=== PATIENT | male | born 1985 | race African-American/Black ===

== ENCOUNTER 2018-04-04 10:16 | Emergency (ER) | payer OTHER ==
[2018-04-04] MEDS ORDERED: MAGNE/ALUM HYDROXD 30 ML UCUP ONE (10:49)
[2018-04-04] MEDS ORDERED: LIDOCAINE VISCOUS 2% SOLN 15 ML UDC ONE (10:49)
[2018-04-04 11:12] LABS: Absolute Lymphocytes (CBC) 1.7 K/uL (0.7-4.9); Absolute Monocytes 0.7 K/uL (0.1-1.3); Basophils % 0.5 % (0-1.3); Eosinophils % 6.6 % (0-4.4); Hematocrit 42.9 % (39.6-49.0); Lymphocytes % 29.6 % (15.3-44.8); MCH 28.7 pg (27.0-35.0); MCV 88.9 fL (80-100); MPV 8.8 fL (7.6-11.3); RBC Red Blood Cell Count 4.83 M/uL (4.33-5.43)
[2018-04-04 11:21] LABS: Bicarbonate 29 mEq/L (21-31); Glucose Level 98 mg/dL (65-120); Lipase 21 U/L (22-51); Potassium 3.9 mEq/L (3.6-5.0); Sodium Level 138 mEq/L (135-145)
[2018-04-04 11:27] LABS: ALT/SGPT 29 IU/L (10-60); AST/SGOT 62 IU/L (10-42); Albumin 4.4 g/dL (3.2-5.5); Alkaline Phosphatase 73 IU/L (42-121); BUN Blood Urea Nitrogen 14 mg/dL (6-20); Bilirubin Direct < 0.1 mg/dL (0-0.2); Bilirubin Total 0.5 mg/dL (0.3-1.2); Protein, Total 7.6 g/dL (6.0-8.3)
--- NOTE | 2018-04-04 12:37 | RAD REPORT ---
EXAM DESCRIPTION: US - Abdomen Exam Limited - 04/04/2018 12:22 pm CLINICAL HISTORY: Abdominal pain COMPARISON: None. FINDINGS: No gallstones are identified. Minimal amount of sludge is seen. There is no wall thickenin g or pericholecystic fluid. No common duct stone or biliary tree dilatation identified. IMPRESSION: Minimal gallbladder sludge with no other gallbladder or biliary tree finding.
--- NOTE | 2018-04-04 12:43 | ER ---
Nurse's Notes [facility] Name: Mendez Lozada Age: 32 yrs Sex: Male : 1985 Arrival Date: 04/04/2018 Time: 10:19 Bed 16 Private MD: None, None Diagnosis: Gastritis, unspecified, without bleeding Presentation: 04/04 10:21 Presenting complaint: Patient states: Epigastric pain since this AM with one episode of aj diarrhea. Patient also reports bright red blood on toilet paper when wiping for 8 years, intermittently. Transition of care: patient was not received from another setting of care. Onset of symptoms was April 04, 2018. Care prior to arrival: None. 10:21 Method Of Arrival: Ambulatory aj 10:21 Acuity: LARON 3 aj 10:52 Risk Assessment: Do you want to hurt yourself or someone else? Patient reports no jl7 desire to harm self or others. Initial Sepsis Screen: Does the patient meet any 2 criteria? No. Patient's initial sepsis screen is negative. Does the patient have a suspected source of infection? No. Patient's initial sepsis screen is negative. Triage Assessment: 10:23 General: Appears in no apparent distress. comfortable, Behavior is calm, cooperative, aj appropriate for age. Pain: Complains of pain in epigastric area Pain currently is 9 out of 10 on a pain scale. Neuro: Level of Consciousness is awake, alert, obeys commands, Oriented to person, place, time, situation, Appropriate for age. Respiratory: Airway is patent Respiratory effort is even, unlabored, Respiratory pattern is regular, symmetrical. GI: Reports upper abdominal pain, diarrhea. Derm: Skin is intact, is healthy with good turgor, Skin is pink, warm \\T\\ dry. normal. Historical: - Allergies: 10:23 No Known Allergies; aj - Home Meds: 10:23 None [Active]; aj - PMHx: 10:23 None; aj - PSHx: 10:23 Arthroscopic knee; aj - Immunization history:: Adult Immunizations up to date. - Social history:: Smoking status: Patient/guardian denies using tobacco. - Ebola Screening: : No symptoms or risks identified at this time. - Family history:: not pertinent. - Hospitalizations: : No recent hospitalization is reported. Screenin:30 Abuse screen: Denies threats or abuse. Denies injuries from another. Nutritional jl7 screening: No deficits noted. Tuberculosis screening: No symptoms or risk factors identified. Fall Risk IV access (20 points). Total Davison Fall Scale indicates No Risk (0-24 pts). Assessment: 10:30 General: Appears in no apparent distress. uncomfortable, Behavior is calm, cooperative, jl7 appropriate for age. Pain: Complains of pain in epigastric area Pain does not radiate. Pain currently is 7 out of 10 on a pain scale. Quality of pain is described as aching, dull, Pain began 1 day ago. Is continuous. Neuro: Level of Consciousness is awake, alert, obeys commands, Oriented to person, place, time, situation. Cardiovascular: Patient's skin is warm and dry. Respiratory: Airway is patent Respiratory effort is even, unlabored, Respiratory pattern is regular, symmetrical. GI: Bowel sounds present X 4 quads. Abd is soft and non tender X 4 quads. Abdomen is tender to palpation in epigastric area. : No signs and/or symptoms were reported regarding the genitourinary system. EENT: No signs and/or symptoms were reported regarding the EENT system. Derm: Skin is dry, Skin is normal, Skin temperature is warm. Musculoskeletal: No signs and/or symptoms reported regarding the musculoskeletal system. 11:28 Reassessment: Patient appears in no apparent distress at this time. Patient and/or hb family updated on plan of care and expected duration. Pain level reassessed. Patient is alert, oriented x 3, equal unlabored respirations, skin warm/dry/pink. 12:01 Reassessment: Pt states "The meds helped a little but I can still feel the dull achy jl7 feeling.". Vital Signs: 10:23 BP 141 / 90; Pulse 66; Resp 18; Temp 97.5; Pulse Ox 99% on R/A; Weight 70.76 kg; Height aj 5 ft. 9 in. (175.26 cm); Pain 9/10; 11:15 BP 131 / 80; Pulse 65; Resp 15; Pulse Ox 100% on R/A; hb 11:30 Pain 7/10; jl7 12:02 BP 134 / 80; Pulse 57; Resp 16; Pulse Ox 100% ; Pain 7/10; jl7 10:23 Body Mass Index 23.04 (70.76 kg, 175.26 cm) ED Course: 10:19 Patient arrived in ED. sb2 10:19 None, None is Private Physician. sb2 10:22 Triage completed. aj 10:23 Arm band placed on left wrist. Patient placed in an exam room. aj 10:25 Enzo Fernando MD is Attending Physician. rn 10:30 Patient has correct armband on for positive identification. Placed in gown. Bed in low jl7 position. Call light in reach. Side rails up X 1. Pulse ox on. NIBP on. 10:39 Sharif Santoro, RN is Primary Nurse. jl7 10:49 Inserted saline lock: 20 gauge in right antecubital area, using aseptic technique. hb Blood collected. 12:17 Patient taken to ultrasound. via wheelchair. aa4 12:19 Abdomen Exam Limited In Process Unspecified. EDMS 12:26 Ultrasound completed. Patient tolerated well. Patient moved back from ultrasound. aa4 12:42 Jace Lynch MD is Referral Physician. rn 13:30 No provider procedures requiring assistance completed. aa5 13:30 IV discontinued, intact, bleeding controlled, No redness/swelling at site. Pressure aa5 dressing applied. Administered Medications: 10:51 Drug: GI Cocktail without - (Maalox Suspension 30 ml, Lidocaine Liquid 2 % 15 jl7 ml) Route: PO; 11:30 Follow up: Pain 7/10 Adult; Response: No adverse reaction; Pain is decreased jl7 Outcome: 12:42 Discharge ordered by MD. rn 13:30 Discharged to home ambulatory. aa5 13:30 Condition: stable 13:30 Discharge instructions given to patient, Instructed on discharge instructions, follow up and referral plans. Demonstrated understanding of instructions, follow-up care. 13:32 Patient left the ED. aa5 Signatures: Dispatcher [employer] EDMS Karie Ayers RN RN Karie Kelley aa4 Enzo Fernando MD MD rn Calderon, Audri, RN RN aa5 Morena Fiore RN RN hb Leal, Jahala, RN RN jl7 Mer Mehta sb2
--- NOTE | 2018-04-04 12:44 | EDPHYS ---
Physician Documentation [facility] Name: Mendez Lozada Age: 32 yrs Sex: Male : 1985 Arrival Date: 04/04/2018 Time: 10:19 Bed 16 Private MD: None, None ED Physician Enzo Fernando HPI: 04/04 10:58 This 32 yrs old Black Male presents to ER via Ambulatory with complaints of Abdominal rn Pain. 10:58 The patient presents with abdominal pain in the epigastric area. Onset: The rn symptoms/episode began/occurred last night. The symptoms do not radiate. Associated signs and symptoms: Pertinent positives: anorexia, diarrhea, nausea, Pertinent negatives: fever, testicular pain. Modifying factors: The symptoms are alleviated by nothing, the symptoms are aggravated by food. Severity of pain: At its worst the pain was mild in the emergency department the pain is unchanged. The patient has experienced a previous episode. Reports epigastric abd pain, began last night, constant since then, still there this AM, + decreased appetite and nausea, single episode of diarrhea. . Historical: - Allergies: 10:23 No Known Allergies; aj - Home Meds: 10:23 None [Active]; aj - PMHx: 10:23 None; aj - PSHx: 10:23 Arthroscopic knee; aj - Immunization history:: Adult Immunizations up to date. - Social history:: Smoking status: Patient/guardian denies using tobacco. - Ebola Screening: : No symptoms or risks identified at this time. - Family history:: not pertinent. - Hospitalizations: : No recent hospitalization is reported. ROS: 10:58 Constitutional: Negative for fever, chills, and weight loss, Eyes: Negative for injury, rn pain, redness, and discharge, Cardiovascular: Negative for chest pain, palpitations, and edema, Respiratory: Negative for shortness of breath, cough, wheezing, and pleuritic chest pain, Abdomen/GI: Negative for vomiting, and constipation, MS/Extremity: Negative for injury and deformity, Skin: Negative for injury, rash, and discoloration, Neuro: Negative for headache, weakness, numbness, tingling, and seizure. Exam: 10:58 Constitutional: This is a well developed, well nourished patient who is awake, alert, rn and in no acute distress. Head/Face: Normocephalic, atraumatic. Eyes: Pupils equal round and reactive to light, extra-ocular motions intact. Lids and lashes normal. Conjunctiva and sclera are non-icteric and not injected. Cornea within normal limits. Periorbital areas with no swelling, redness, or edema. Abdomen/GI: soft, + epigastric abd tenderness, neg ortiz MS/ Extremity: Pulses equal, no cyanosis. Neurovascular intact. Full, normal range of motion. Equal circumference. Neuro: Awake and alert, GCS 15, oriented to person, place, time, and situation. Cranial nerves II-XII grossly intact. Motor strength 5/5 in all extremities. Sensory grossly intact. Cerebellar exam normal. Normal gait. Vital Signs: 10:23 BP 141 / 90; Pulse 66; Resp 18; Temp 97.5; Pulse Ox 99% on R/A; Weight 70.76 kg; Height aj 5 ft. 9 in. (175.26 cm); Pain 9/10; 11:15 BP 131 / 80; Pulse 65; Resp 15; Pulse Ox 100% on R/A; hb 11:30 Pain 7/10; jl7 12:02 BP 134 / 80; Pulse 57; Resp 16; Pulse Ox 100% ; Pain 7/10; jl7 10:23 Body Mass Index 23.04 (70.76 kg, 175.26 cm) aj MDM: 10:25 Patient medically screened. rn 12:42 Differential diagnosis: cholecystitis, Cholelithiasis, gastritis, gastroesophageal rn reflux disease, non-specific abd pain, pancreatitis, Peptic Ulcer Disease. Data reviewed: vital signs, nurses notes, lab test result(s), radiologic studies, ultrasound, and as a result, I will discharge patient. Counseling: I had a detailed discussion with the patient and/or guardian regarding: the historical points, exam findings, and any diagnostic results supporting the discharge/admit diagnosis, lab results, radiology results, the need for outpatient follow up, to return to the emergency department if symptoms worsen or persist or if there are any questions or concerns that arise at home. Response to treatment: the patient's symptoms have mildly improved after treatment, and as a result, I will discharge patient. Special discussion: I discussed with the patient/guardian in detail that at this point there is no indication for admission to the hospital. It is understood, however, that if the symptoms persist or worsen the patient needs to return immediately for re-evaluation. Based on the history and exam findings, there is no indication for further emergent testing or inpatient evaluation. I discussed with the patient/guardian the need to see the bank courier for further evaluation of the symptoms. 04/04 11:02 Order name: Basic Metabolic Panel; Complete Time: 12:28 [facility] 04/04 10:33 Order name: IV Saline Lock; Complete Time: 10:48 rn 04/04 10:33 Order name: Labs collected and sent; Complete Time: 10:48 rn 04/04 11:02 Order name: Liver (Hepatic) Function; Complete Time: 12:28 [facility] 04/04 11:02 Order name: Lipase; Complete Time: 12:28 [facility] 04/04 11:02 Order name: CBC with Automated Diff; Complete Time: 11:17 [facility] 04/04 12:09 Order name: Abdomen Exam Limited; Complete Time: 12:43 EDMS Administered Medications: 10:51 Drug: GI Cocktail without - (Maalox Suspension 30 ml, Lidocaine Liquid 2 % 15 jl7 ml) Route: PO; 11:30 Follow up: Pain 05/22 Adult; Response: No adverse reaction; Pain is decreased jl7 Disposition: 04/04/18 12:42 Discharged to Home. Impression: Gastritis, unspecified, without bleeding. - Condition is Stable. - Discharge Instructions: Gastritis, Adult, Gastroesophageal Reflux Disease, Adult. - Medication Reconciliation Form, Thank You Letter, Antibiotic Education, Prescription Opioid Use, Work release form form. - Follow up: Jace Lynch MD; When: As needed; Reason: Recheck today's complaints, Re-evaluation by your physician. - Problem is new. - Symptoms have improved. Signatures: Dispatcher [employer] [facility] Karie Ayers RN RN aj Nieto, Roman, MD MD rn Calderon, Audri, RN RN aa5 Sharif Santoro RN RN jl7 Corrections: (The following items were deleted from the chart) 12:47 10:34 Abdomen Limited+[id number].RAD.[id number] ordered. [facility] 13:32 12:42 04/04/2018 12:42 Discharged to Home. Impression: Gastritis, unspecified, without aa5 bleeding. Condition is Stable. Forms are Medication Reconciliation Form, Thank You Letter, Antibiotic Education, Prescription Opioid Use. Follow up: Jace Lynch; When: As needed; Reason: Recheck today's complaints, Re-evaluation by your physician. Problem is new. Symptoms have improved. rn
[2018-04-04 13:44] VITALS: TEMP 97.5
[2018-04-04 13:45] VITALS: O2SAT 100
[2018-04-04 13:47] VITALS: BP 134/80
== END 2018-04-04 13:32 | disposition home or self-care (01) ==
LOC: ER 10:16
DX: K29.70 Gastritis, unspecified, without bleeding (principal)
CPT/HCPCS: 36415; 76705; 80048; 80076; 83690; 85025; 99284

== ENCOUNTER 2021-09-27 05:51 | Emergency (ER) | payer OTHER ==
--- NOTE | 2021-09-27 06:24 | EDPHYS ---
Physician Documentation [facility] Name: Mendez Lozada Age: 35 yrs Sex: Male : 1985 Arrival Date: 09/27/2021 Time: 05:55 Bed 17 Private MD: ED Physician Lizeth Hendricks HPI: 09/27 06:22 This 35 yrs old Black Male presents to ER via Ambulatory with complaints of Ear Problem.ma2 06:22 The patient presents with a fullness. The complaints affect the left ear. Associated ma2 signs and symptoms: Pertinent negatives: lightheadedness, sinus trouble, sore throat, vertigo. Severity of symptoms: At their worst the symptoms were moderate in the emergency department the symptoms are unchanged. The patient has not experienced similar symptoms in the past. Historical: - Allergies: 06:05 No Known Allergies; cc4 - Home Meds: 06:05 None [Active]; cc4 - PMHx: 06:05 Unable to hear out of left ear.; cc4 - Immunization history:: Adult Immunizations up to date. - Social history:: Smoking status: Patient denies any tobacco usage or history of. Patient/guardian denies using IV drugs, tobacco products, Patient/guardian denies using street drugs, The patient lives with family. - Family history:: not pertinent. ROS: 06:22 Constitutional: Negative for fever, chills, and weight loss. ma2 06:22 All other systems are negative. Exam: 06:22 Constitutional: This is a well developed, well nourished patient who is awake, alert, ma2 and in no acute distress. Head/Face: Normocephalic, atraumatic. Eyes: Pupils equal round and reactive to light, extra-ocular motions intact. Lids and lashes normal. Conjunctiva and sclera are non-icteric and not injected. Cornea within normal limits. Periorbital areas with no swelling, redness, or edema. ENT: left auditory cnal is inflammed, otherwise Nares patent. No nasal discharge, no septal abnormalities noted. Tympanic membranes are normal and right external auditory canal is clear. Oropharynx with no redness, swelling, or masses, exudates, or evidence of obstruction, uvula midline. Mucous membranes moist. Neck: Trachea midline, no thyromegaly or masses palpated, and no cervical lymphadenopathy. Supple, full range of motion without nuchal rigidity, or vertebral point tenderness. No Meningismus. Chest/axilla: Normal chest wall appearance and motion. Nontender with no deformity. No lesions are appreciated. Cardiovascular: Regular rate and rhythm with a normal S1 and S2. No gallops, murmurs, or rubs. Normal PMI, no JVD. No pulse deficits. Respiratory: Lungs have equal breath sounds bilaterally, clear to auscultation and percussion. No rales, rhonchi or wheezes noted. No increased work of breathing, no retractions or nasal flaring. Abdomen/GI: Soft, non-tender, with normal bowel sounds. No distension or tympany. No guarding or rebound. No evidence of tenderness throughout. Back: No spinal tenderness. No costovertebral tenderness. Full range of motion. Vital Signs: 06:05 BP 120 / 67; Pulse 59; Resp 18; Temp 97.6(O); Pulse Ox 100% on R/A; Weight 68.04 kg; cc4 Height 5 ft. 9 in. (175.26 cm); 06:05 BP 120 / 67; Pulse 59; Resp 18; Temp 97.6(O); Pulse Ox 100% on R/A; cc4 06:05 Body Mass Index 22.15 (68.04 kg, 175.26 cm) cc4 MDM: 06:21 Patient medically screened. va2 06:22 Differential diagnosis: foreign body, cerumen impaction, barotrauma , serotympanum. ma2 Data reviewed: vital signs, nurses notes, EMS record. Counseling: I had a detailed discussion with the patient and/or guardian regarding: the historical points, exam findings, and any diagnostic results supporting the discharge/admit diagnosis, the presence of at least one elevated blood pressure reading (>120/80) during this emergency department visit, lab results, radiology results, the need for outpatient follow up. Administered Medications: No medications were administered Disposition Summary: 09/27/21 06:24 Discharge Ordered Location: Home ma2 Condition: Stable ma2 Diagnosis - Acute reactive otitis externa, left ear ma2 Followup: ma2 - With: Private Physician - When: Tomorrow - Reason: Recheck today's complaints, Continuance of care Discharge Instructions: - Discharge Summary Sheet ma2 - Ear Drops, Adult ma2 - Otitis Externa, [id number] ma2 Forms: - Medication Reconciliation Form ma2 - Thank You Letter ma2 - Antibiotic Education ma2 - Prescription Opioid Use ma2 Prescriptions: - Cipro HC 0.2-1 % Otic Drops - instill 3 drops by OTIC route every 12 hours for 7 days; 10 milliliter; ma2 Refills: 0, Product Selection Permitted Signatures: Lizeth Hendricks MD MD ma2 Daria Corado RN RN cc4 Corrections: (The following items were deleted from the chart) 06:17 06:05 PMHx: None; cc4 cc4
--- NOTE | 2021-09-27 06:24 | ER ---
Nurse's Notes [facility] Name: Mendez Lozada Age: 35 yrs Sex: Male : 1985 Arrival Date: 09/27/2021 Time: 05:55 Bed 17 Private MD: Diagnosis: Acute reactive otitis externa, left ear Presentation: 09/27 06:05 Chief complaint: Patient states: "My left ear is stopped up", "I haven't been able to cc4 hear out of it since 4 pm yesterday"; denies any injury or pain of left ear. 06:05 Method Of Arrival: Ambulatory cc4 06:05 Coronavirus screen: Vaccine status: Patient reports receiving the 2nd dose of the covid cc4 vaccine. Date August 13, 2021 At this time, the client does not indicate any symptoms associated with coronavirus-19. Ebola Screen: Patient negative for fever greater than or equal to 101.5 degrees Fahrenheit, and additional compatible Ebola Virus Disease symptoms No symptoms or risks identified at this time. 06:05 Onset of symptoms was September 26, 2021 at 16:00. cc4 06:05 Risk Assessment: Do you want to hurt yourself or someone else? Patient reports no cc4 desire to harm self or others. 06:05 Initial Sepsis Screen: Does the patient have a suspected source of infection? No. cc4 Patient's initial sepsis screen is negative. 06:05 Initial Sepsis Screen: Does the patient meet any 2 criteria? No. Patient's initial cc4 sepsis screen is negative. 06:23 Acuity: LARON 5 em Triage Assessment: 06:34 General: see presentation and nursing assessment.. cc4 Historical: - Allergies: 06:05 No Known Allergies; cc4 - Home Meds: 06:05 None [Active]; cc4 - PMHx: 06:05 Unable to hear out of left ear.; cc4 - Immunization history:: Adult Immunizations up to date. - Social history:: Smoking status: Patient denies any tobacco usage or history of. Patient/guardian denies using IV drugs, tobacco products, Patient/guardian denies using street drugs, The patient lives with family. - Family history:: not pertinent. Screenin:05 Abuse screen: Denies threats or abuse. Nutritional screening: No deficits noted. cc4 Tuberculosis screening: No symptoms or risk factors identified. Fall Risk None identified. Assessment: 06:05 Reassessment: Patient appears in no apparent distress at this time. General: Appears in cc4 no apparent distress. Behavior is calm, cooperative. Pain: Denies pain. Neuro: No deficits noted. Level of Consciousness is awake, alert, obeys commands, Oriented to person, place, time, situation. Cardiovascular: No deficits noted. Respiratory: No deficits noted. Airway is patent Respiratory effort is even, unlabored, Respiratory pattern is regular, symmetrical. GI: No signs and/or symptoms were reported involving the gastrointestinal system. : No signs and/or symptoms were reported regarding the genitourinary system. EENT: Reports not being able to hear out of left ear since 1600 yesterday.. Derm: No deficits noted. Skin is intact. Musculoskeletal: No deficits noted. Capillary refill < 3 seconds, Range of motion: intact in all extremities. 06:15 Reassessment: Dr. Hendricks in to see. cc4 Vital Signs: 06:05 BP 120 / 67; Pulse 59; Resp 18; Temp 97.6(O); Pulse Ox 100% on R/A; Weight 68.04 kg; cc4 Height 5 ft. 9 in. (175.26 cm); 06:05 BP 120 / 67; Pulse 59; Resp 18; Temp 97.6(O); Pulse Ox 100% on R/A; cc4 06:05 Body Mass Index 22.15 (68.04 kg, 175.26 cm) 4 ED Course: 05:55 Patient arrived in ED. bp1 06:05 Arm band placed on. cc4 06:05 Patient has correct armband on for positive identification. Bed in low position. Call [facility] light in reach. 06:10 Daria Corado, AGUEDA is Primary Nurse. cc4 06:21 Lizeth Hendricks MD is Attending Physician. ma2 06:23 Triage completed. em 06:30 No provider procedures requiring assistance completed. cc4 06:30 Patient did not have IV access during this emergency room visit. cc4 Administered Medications: No medications were administered Outcome: 06:24 Discharge ordered by . ma2 06:30 Discharged to home ambulatory. cc4 06:30 Condition: good 06:30 Discharge instructions given to patient, Instructed on discharge instructions, follow up and referral plans. medication usage, Demonstrated understanding of instructions, follow-up care, medications. 06:35 Patient left the ED. cc4 Signatures: Vik Nash, RN RN Lizeth Correia MD MD ak2 Estefnai Rod Christie, RN RN cc4 Corrections: (The following items were deleted from the chart) 06:17 06:05 PMHx: None; cc4 cc4
[2021-09-27 06:40] VITALS: BP 120/67; TEMP 97.6; O2SAT 100
== END 2021-09-27 06:35 | disposition home or self-care (01) ==
LOC: ER 05:51
DX: H60.552 Acute reactive otitis externa, left ear (principal)
CPT/HCPCS: 99281